=== PATIENT | female | born 1995 | race Caucasian/White ===

== ENCOUNTER 2018-11-24 16:56 | Emergency (ER) | payer OTHER ==
[~2018-11-24] VITALS: Ht 160 cm; Wt 60.3 kg
[~2018-11-24 16:56] MED LIST: ALLEGRA60 MG PO; PRENATAL TABLE1 EAC1 PO; [UNRECOGNIZED DRUG - REMARK] PO
--- NOTE | 2018-11-26 13:55 | EKG ---
[facility] [address] [place], [place] [address] Signed Normal sinus rhythm Normal ECG No previous ECGs available Confirmed by DEIDRA JACKSON MD ([id number]) on 11/26/2018 1:55:47 PM Electronically Signed By: DEIDRA JACKSON MD 11/26/18 1355 PATIENT NAME: REMEDIOS SANCHEZ ASHVIN Electrocardiogram DATE OF : [birth year] PHYSICIAN: DEIDRA JACKSON MD REPORT #: [id number] REPORT IS CONFIDENTIAL AND NOT TO BE RELEASED WITHOUT AUTHORIZATION
== END 2018-11-24 18:41 | disposition home or self-care (01) ==
LOC: ED 16:56
DX: R07.9 Chest pain, unspecified (principal)
CPT/HCPCS: 71045; 93005; 93010; 99285-25